=== PATIENT | female | born 1960 | race Caucasian/White ===

== ENCOUNTER 2017-01-26 20:30 | Outpatient (CLI) | payer OTHER | END 2017-01-26 20:31 | disposition home or self-care (01) | LOC: SLEEPLAB 20:30 | PROVIDERS: ATTEND Family Medicine | DX: G47.33 Obstructive sleep apnea (adult) (pediatric) (principal); E66.9 Obesity, unspecified; I10 Essential (primary) hypertension; E11.9 Type 2 diabetes mellitus without complications; I51.89 Other ill-defined heart diseases | CPT/HCPCS: 95811 ==

== ENCOUNTER 2017-04-03 19:30 | Outpatient (CLI) | payer OTHER | END 2017-04-03 19:31 | disposition home or self-care (01) | LOC: SLEEPLAB 19:30 | PROVIDERS: ATTEND Family Medicine | DX: G47.33 Obstructive sleep apnea (adult) (pediatric) (principal); G47.61 Periodic limb movement disorder; E66.9 Obesity, unspecified; I10 Essential (primary) hypertension; E11.9 Type 2 diabetes mellitus without complications | CPT/HCPCS: 95811 ==

== ENCOUNTER 2017-05-07 12:47 | Emergency (ER) | payer OTHER ==
[2017-05-07] MEDS ORDERED: Acetaminophen/Codeine 30-300mg Tablet ONE (12:59)
--- NOTE | 2017-05-07 14:06 | RAD ---
PORTABLE CHEST: Date: 05/07/17 PROVIDED CLINICAL HISTORY: Trauma. FINDINGS: No comparisons. The cardiac silhouette appears enlarged. There is prominence of the pulmonary vasculature and pulmona ry interstitium with patchy bilateral air space disease suggested. Evaluation is limited by patient b chidi habitus. No pleural fluid or pneumothorax is evident. IMPRESSION: Cardiomegaly and findings suggesting congestive failure. Air space disease may reflect alveolar edema . Given the patient's history of trauma, contusion could also be considered. An infectious or inflamm atory process is also possible. Follow-up is recommended. POS: GARY
--- NOTE | 2017-05-07 14:26 | RAD ---
LEFT SHOULDER 3 VIEWS: Date: 05/07/17 PROVIDED CLINICAL HISTORY: Left shoulder pain status post injury. FINDINGS: There is widening of the acromioclavicular distance suggesting acromioclavicular joint injury. The co racoclavicular distance is at the upper limits of normal to mildly widened. The subacromial space gordon ears preserved. No evidence for fracture. Glenohumeral relationship appears normal. IMPRESSION: Findings suggesting acromioclavicular joint injury. POS: GARY
== END 2017-05-07 14:08 | disposition home or self-care (01) ==
LOC: SCSER 12:47
DX: S43.102A Unspecified dislocation of left acromioclavicular joint, initial encounter (principal); E11.22 Type 2 diabetes mellitus with diabetic chronic kidney disease; W17.89XA Other fall from one level to another, initial encounter
CPT/HCPCS: 71045

== ENCOUNTER 2017-08-23 15:36 | Outpatient (CLI) | payer OTHER | END 2017-08-23 15:37 | disposition home or self-care (01) | LOC: BICMAMMO 15:36 | PROVIDERS: ATTEND Family Medicine | DX: Z12.31 Encounter for screening mammogram for malignant neoplasm of breast (principal); N64.89 Other specified disorders of breast; Z80.3 Family history of malignant neoplasm of breast | CPT/HCPCS: 77063; 77067 ==